=== PATIENT | female | born 1940 | race Caucasian/White ===

== ENCOUNTER 2022-01-04 04:44 | Observation (INO) | payer OTHER ==
[2022-01-04] MEDS ORDERED: predniSONE 20 MG TABLET (UD) PO ONE (05:08)
[2022-01-04] MEDS ORDERED: diphenhydrAMINE HCL 25 MG CAPSULE (FP) PO ONE ×4 (05:08→08:23)
[2022-01-04] MEDS ORDERED: predniSONE 20 MG TABLET (UD) ONE (05:15)
[2022-01-04 06:47] LABS: BASO % 1.9 % (0-2.0); EOS % 0.8 % (0-4.5); HEMATOCRIT 41.5 % (32.4-45.2); HEMOGLOBIN 13.5 GM/dL (10.7-15.3); LYMPH % 15.9 % (8-40); MCH 27.5 pg (25.7-33.7); MCHC 32.5 g/dl (32.0-36.0); MEAN CELL VOLUME 84.8 fl (80-96); MEAN PLT VOLUME 9.4 fl (7.5-11.1); MONO % 6.5 % (3.8-10.2); NEUT % 74.9 % (42.8-82.8); PLATELET COUNT 155 10^3/uL (134-434); RDW 15.1 % (11.6-15.6); WHITE BLOOD COUNT 7.3 K/mm3 (4.0-10.0)
[2022-01-04 07:08] LABS: CALCIUM 8.4 mg/dL (8.5-10.1)
[2022-01-04 07:09] LABS: ALBUMIN 3.9 g/dl (3.4-5.0); BLOOD UREA NITROGEN 8.3 mg/dL (7-18)
[2022-01-04 07:12] LABS: CREATININE 0.6 mg/dL (0.55-1.3)
[2022-01-04 07:13] LABS: BILIRUBIN,TOTAL 0.5 mg/dL (0.2-1); TOT PROT 7.1 g/dl (6.4-8.2)
[2022-01-04 18:01] VITALS: BMI 25.2
[2022-01-04] MEDS ORDERED: PRAMIPEXOLE DIHYDROCHLORIDE 0.25 MG TABLET PO SCH (22:00)
[2022-01-05] MEDS ORDERED: diphenhydrAMINE HCL 25 MG CAPSULE (FP) PO ONE ×2 (00:27→06:51)
[2022-01-05] MEDS ORDERED: amLODIPine BESYLATE 10 MG TABLET (FP) PO ONE (06:11)
[2022-01-05] MEDS ORDERED: LEVOTHYROXINE NA 50 MCG TABLET (FP) PO SCH (07:00)
[2022-01-05 14:49] VITALS: BP 122/68; PULSE 85; TEMP 98.4
[2022-01-05] MEDS ORDERED: predniSONE 20 MG TABLET (UD) PO ONE (16:48)
== END 2022-01-05 18:46 | disposition home or self-care (01) ==
LOC: JER 04:44 → JERBED 09:10 → J8W 17:41
PROVIDERS: ADMIT Internal Medicine; ATTEND Internal Medicine
DX: T78.3XXA Angioneurotic edema, initial encounter (principal); I10 Essential (primary) hypertension; E03.9 Hypothyroidism, unspecified; Z88.0 Allergy status to penicillin; Z88.2 Allergy status to sulfonamides; Z88.8 Allergy status to other drugs, medicaments and biological substances
CPT/HCPCS: 36415; 80053; 85025; 99285-25; C9803; G0378; U0003; U0005

== ENCOUNTER 2023-06-26 15:07 | Inpatient (IN) | payer OTHER ==
[2023-06-26 15:31] VITALS: BMI 25.0
[2023-06-26] MEDS ORDERED: NITROGLYCERIN 2% OINTMENT - 1GM PACKET TD ONE ×2 (16:25→16:29)
[2023-06-26 16:56] LABS: BASO % 0.8 % (0-2.0); EOS % 1.6 % (0-4.5); HEMATOCRIT 37.9 % (32.4-45.2); HEMOGLOBIN 12.1 GM/dL (10.7-15.3); LYMPH % 24.4 % (8-40); MCHC 31.9 g/dl (32.0-36.0); MEAN CELL VOLUME 81.5 fl (80-96); MEAN PLT VOLUME 9.5 fl (7.5-11.1); MONO % 7.9 % (3.8-10.2); NEUT % 65.3 % (42.8-82.8); PLATELET COUNT 104 10^3/uL (134-434); RBC 4.66 M/mm3 (3.60-5.2); RDW 15.5 % (11.6-15.6); WHITE BLOOD COUNT 5.3 K/mm3 (4.0-10.0)
[2023-06-26 17:01] LABS: EPI CELLS 1 /uL (0-25.1); HYALINE CASTS 0 /uL (0-3.1); URINE APPEARANCE CLEAR; URINE BACTERIA 8 /uL (0-1359); URINE BILIRUBIN NEGATIVE (NEGATIVE); URINE COLOR YELLOW; URINE GLUCOSE (UA) NEGATIVE (NEGATIVE); URINE KETONE NEGATIVE (NEGATIVE); URINE LEUK ESTERASE NEGATIVE (NEGATIVE); URINE NITRITE NEGATIVE (NEGATIVE); URINE PROTEIN NEGATIVE (NEGATIVE); URINE RBC 20 /uL (0-23.9); URINE UROBILINOGEN 0.2 mg/dL (0.2-1.0); URINE WBC 1 /uL (0-25.8)
[2023-06-26 17:14] LABS: BLOOD UREA NITROGEN 15.5 mg/dL (7-18); CALCIUM 9.1 mg/dL (8.5-10.1)
[2023-06-26 17:15] LABS: ALBUMIN 3.6 g/dl (3.4-5.0)
[2023-06-26 17:18] LABS: CREATININE 0.6 mg/dL (0.55-1.3)
[2023-06-26 17:19] LABS: BILIRUBIN,TOTAL 0.4 mg/dL (0.2-1); TOT PROT 6.6 g/dl (6.4-8.2)
[2023-06-26 17:20] LABS: MAGNESIUM 2.3 mg/dL (1.8-2.4)
[2023-06-26] MEDS ORDERED: CLOPIDOGREL BISULFATE 75 MG TABLET (FP) PO ONE (18:08)
[2023-06-26] MEDS ORDERED: LIDOCAINE 5% TOPICAL PATCH ONE (18:19)
[2023-06-26] MEDS ORDERED: CLOPIDOGREL BISULFATE 75 MG TABLET (FP) ONE (18:23)
[2023-06-26] MEDS: PRAMIPEXOLE DIHYDROCHLORIDE 0.25 MG TABLET PO SCH (22:39)
[2023-06-27] MEDS: LEVOTHYROXINE NA 25 MCG TABLET (FP) PO SCH (06:04)
[2023-06-27 07:43] LABS: HEMATOCRIT 37.6 % (32.4-45.2); HEMOGLOBIN 12.3 GM/dL (10.7-15.3); MCH 26.3 pg (25.7-33.7); MCHC 32.8 g/dl (32.0-36.0); MEAN CELL VOLUME 80.3 fl (80-96); MEAN PLT VOLUME 9.9 fl (7.5-11.1); PLATELET COUNT 93 10^3/uL (134-434); RBC 4.69 M/mm3 (3.60-5.2); RDW 15.1 % (11.6-15.6); WHITE BLOOD COUNT 5.3 K/mm3 (4.0-10.0)
[2023-06-27 08:03] LABS: POTASSIUM 3.5 mmol/L (3.5-5.1)
[2023-06-27 08:06] LABS: CALCIUM 8.4 mg/dL (8.5-10.1)
[2023-06-27 08:07] LABS: ALBUMIN 3.3 g/dl (3.4-5.0); BLOOD UREA NITROGEN 12.3 mg/dL (7-18)
[2023-06-27 08:10] LABS: CREATININE 0.6 mg/dL (0.55-1.3)
[2023-06-27 08:11] LABS: BILIRUBIN,TOTAL 0.4 mg/dL (0.2-1)
[2023-06-27 08:12] LABS: TOT PROT 5.9 g/dl (6.4-8.2)
[2023-06-27] MEDS ORDERED: ENOXAPARIN NA (PORCINE) 40 MG/0.4 ML DISP.SYRIN SQ SCH (10:00)
[2023-06-27 16:19] LABS: HEMATOCRIT 40.3 % (32.4-45.2); MCHC 32.2 g/dl (32.0-36.0); MEAN CELL VOLUME 80.9 fl (80-96); MEAN PLT VOLUME 9.3 fl (7.5-11.1); PLATELET COUNT 106 10^3/uL (134-434); RBC 4.99 M/mm3 (3.60-5.2); RDW 15.3 % (11.6-15.6); WHITE BLOOD COUNT 7.3 K/mm3 (4.0-10.0)
[2023-06-27] MEDS: PRAMIPEXOLE DIHYDROCHLORIDE 0.25 MG TABLET PO SCH (22:10)
[2023-06-28] MEDS: LEVOTHYROXINE NA 25 MCG TABLET (FP) PO SCH (06:00)
[2023-06-28 07:03] VITALS: RESP 20
[2023-06-28 10:11] VITALS: BP 145/76; PULSE 75; TEMP 98.2
== END 2023-06-28 13:27 | disposition home or self-care (01) | DRG 813 ==
LOC: JER 15:07 → JERBED 18:25 → OBSVTOIN 19:22 → J4W 22:53
PROVIDERS: ADMIT Internal Medicine; ATTEND Internal Medicine
DX: D69.6 Thrombocytopenia, unspecified (principal); E03.9 Hypothyroidism, unspecified; R07.89 Other chest pain; J45.909 Unspecified asthma, uncomplicated; M81.0 Age-related osteoporosis without current pathological fracture; G25.81 Restless legs syndrome
CPT/HCPCS: 36415; 71045-TC-FY; 80053; 80061; 81003; 82962; 83036; 83735; 84443; 84484; 85025; 85027; 85379; 87086; 93005; 93010; 99285-25; G0378

== ENCOUNTER 2024-05-14 20:13 | Emergency (ER) | payer OTHER ==
[2024-05-14 20:37] VITALS: BMI 26.1
[2024-05-14 22:25] LABS: HEMATOCRIT 41.7 % (32.4-45.2); HEMOGLOBIN 13.6 GM/dL (10.7-15.3); MCH 26.1 pg (25.7-33.7); MCHC 32.6 g/dl (32.0-36.0); MEAN CELL VOLUME 80.1 fl (80-96); MEAN PLT VOLUME 9.3 fl (7.5-11.1); PLATELET COUNT 105 10^3/uL (134-434); RBC 5.21 M/mm3 (3.60-5.2); RDW 15.5 % (11.6-15.6); WHITE BLOOD COUNT 7.8 K/mm3 (4.0-10.0)
[2024-05-14 22:30] LABS: INR 0.89 (0.83-1.09); PROTHROMBIN TIME (PATIENT) 10.3 SEC (9.7-13.0)
[2024-05-14 22:33] LABS: ACTIVATED PTT 32.3 SECONDS (25.2-36.5)
[2024-05-14] MEDS ORDERED: ACETAMINOPHEN INJECTION 100 ML IVPB ONE (22:44)
[2024-05-14 22:45] LABS: POTASSIUM 4.4 mmol/L (3.5-5.1)
[2024-05-14] MEDS ORDERED: LIDOCAINE 4% PATCH TP ONE (22:45)
[2024-05-14 22:47] LABS: ANISOCYTOSIS 1+; BLOOD UREA NITROGEN 11.7 mg/dL (7-18); CALCIUM 8.9 mg/dL (8.5-10.1); MACROCYTOSIS 0; OVALOCYTE 1+
[2024-05-14 22:48] LABS: ALBUMIN 3.8 g/dl (3.4-5.0)
[2024-05-14 22:51] LABS: CREATININE 0.6 mg/dL (0.55-1.3)
[2024-05-14] MEDS: LIDOCAINE 4% PATCH TP ONE (22:51)
[2024-05-14] MEDS: ACETAMINOPHEN 1000 MG/100 ML BAG IVPB ONE (22:51)
[2024-05-14 22:52] LABS: BILIRUBIN,TOTAL 0.8 mg/dL (0.2-1); TOT PROT 7.3 g/dl (6.4-8.2)
[2024-05-14] MEDS: LIDOCAINE PATCH REMOVAL MC SCH (22:52)
[2024-05-15] MEDS ORDERED: MORPHINE SULFATE 2 MG/ML SYRINGE ONE (00:23)
[2024-05-15 00:40] VITALS: BP 183/67; PULSE 96; RESP 16
[2024-05-15] MEDS: morphine CARPU-JECT 4 MG/1 ML DISP.SYRIN IVPUSH ONE (00:40)
[2024-05-15 02:24] VITALS: TEMP 98.4
== END 2024-05-15 01:35 | disposition short-term general hospital (02) ==
LOC: JER 20:13
PROC: 3E033NZ Introduction of Analgesics, Hypnotics, Sedatives into Peripheral Vein, Percutaneous Approach (ICD-10-PCS; principal; 2024-05-14)
PROC: 3E033NZ Introduction of Analgesics, Hypnotics, Sedatives into Peripheral Vein, Percutaneous Approach (ICD-10-PCS; 2024-05-15)
DX: S22.42XA Multiple fractures of ribs, left side, initial encounter for closed fracture (principal); R06.02 Shortness of breath; R42 Dizziness and giddiness; R00.0 Tachycardia, unspecified; R11.2 Nausea with vomiting, unspecified; W07.XXXA Fall from chair, initial encounter; Z20.822 Contact with and (suspected) exposure to COVID-19
CPT/HCPCS: 0241U-QW; 36415; 71045-TC-FY; 71101-TC-LT-FY; 71250-TC; 80053; 84484; 85025; 85610; 85730; 93005; 93010; 99285-25; J0131